=== PATIENT | male | born 1950 | race Caucasian/White ===

== ENCOUNTER 2017-06-20 00:22 | Emergency (ER) | payer MEDICARE ==
[~2017-06-20] VITALS: Ht 172.7 cm; Wt 90.7 kg
[2017-06-20] MEDS ORDERED: LIDO:MAALOX:DONNATAL 1:1:1 15 ML SINGLE DOSE SWSW ONE (00:45)
[2017-06-20] MEDS ORDERED: fentaNYL PF VIAL 100 MCG/2 ML VIAL IV ONE (00:45)
[2017-06-20] MEDS ORDERED: ONDANSETRON PF 4 MG/2 ML VIAL. IV ONE (01:00)
--- NOTE | 2017-06-20 01:07 | PHYS DOC ---
Past Medical History Past Medical History: Diabetes-Type II, Hypertension, Stroke Past Surgical History: Tonsillectomy Additional Past Surgical Histo: RT ANKLE Alcohol Use: Occasionally Drug Use: None Adult General Chief Complaint Chief Complaint: ABDOMINAL PAIN HPI HPI Patient is a 66 year old male who states he has had abdominal pressure x 1 hour. he ate chili at dinner about 5pm with no problem. he drank milk at 2245 and then he began having abdominal pressure. he denies n/v/d. no fever. he has a hx of heartburn but "it doesn't feel like that". he felt fine prior to and after dinner Review of Systems Review of Systems Constitutional: Denies fever or chills [] Eyes: Denies change in visual acuity, redness, or eye pain [] HENT: Denies nasal congestion or sore throat [] Respiratory: Denies cough or shortness of breath [] Cardiovascular: No additional information not addressed in HPI [] GI: Denies abdominal pain, nausea, vomiting, bloody stools or diarrhea [] : Denies dysuria or hematuria [] Musculoskeletal: Denies back pain or joint pain [] Integument: Denies rash or skin lesions [] Neurologic: Denies headache, focal weakness or sensory changes [] Endocrine: Denies polyuria or polydipsia [] Current Medications Current Medications Current Medications Medications (Trade) Dose Ordered Sig/Eduardo Start Time Stop Time Status Last Admin Dose Admin Fentanyl Citrate (Fentanyl 2ml Vial) 50 mcg 1X ONCE 06/20/17 00:45 06/20/17 01:30 DC 06/20/17 00:58 50 MCG Info (Do NOT chart on this entry -- for MONITORING) 1 each PRN DAILY PRN 06/20/17 01:45 06/20/17 03:12 DC Iohexol (Omnipaque 300 Mg/ml) 60 ml 1X ONCE 06/20/17 01:45 06/20/17 01:46 DC 06/20/17 01:43 60 ML Ketorolac Tromethamine (Toradol) 30 mg 1X ONCE 06/20/17 02:15 06/20/17 02:16 Cancel Multi-Ingredient Mouthwash/Gargle (Gi Cocktail Single Dose) 15 ml 1X ONCE 06/20/17 00:45 06/20/17 01:30 DC 06/20/17 00:58 15 ML Ondansetron HCl (Zofran) 4 mg 1X ONCE 06/20/17 01:00 06/20/17 01:30 DC 06/20/17 00:58 4 MG Allergies Allergies Allergies Coded Allergies Type Severity Reaction Last Updated Verified No Known Drug Allergies 06/20/17 No Physical Exam Physical Exam Constitutional: Well developed, well nourished, no acute distress, non-toxic appearance. [] HENT: Normocephalic, atraumatic, bilateral external ears normal, oropharynx moist, no oral exudates, nose normal. [] Eyes: PERRLA, EOMI, conjunctiva normal, no discharge. [] Neck: Normal range of motion, no tenderness, supple, no stridor. [] Cardiovascular:Heart rate regular rhythm, no murmur [] Lungs & Thorax: Bilateral breath sounds clear to auscultation [] Abdomen: BS are diminished. abd is soft, increased tenderness in epigastric area. no ruq pain. no periumbilical tenderness, no masses, no pulsatile masses. [] Skin: Warm, dry, no erythema, no rash. [] Back: No tenderness, no CVA tenderness. [] Extremities: No tenderness, no cyanosis, no clubbing, ROM intact, no edema. [] Neurologic: Alert and oriented X 3, normal motor function, normal sensory function, no focal deficits noted. [] Psychologic: Affect normal, judgement normal, mood normal. [] Current Patient Data Vital Signs Vital Signs Date Time Temp Pulse Resp B/P (MAP) Pulse Ox O2 Delivery O2 Flow Rate FiO2 06/20/17 03:00 86 148/75 (99) 93 Room Air 06/20/17 00:58 18 06/20/17 00:25 97.7 97.7 Lab Values Laboratory Tests Test 06/20/17 00:40 White Blood Count 11.3 x10^3/uL (4.0-11.0) H Red Blood Count 5.05 x10^6/uL (4.30-5.70) Hemoglobin 16.0 g/dL (13.0-17.5) Hematocrit 47.0 % (39.0-53.0) Mean Corpuscular Volume 93 fL (79-100) Mean Corpuscular Hemoglobin 32 pg (25-35) Mean Corpuscular Hemoglobin Concent 34 g/dL (31-37) Red Cell Distribution Width 13.4 % (11.5-14.5) Platelet Count 223 x10^3/uL (140-400) Neutrophils (%) (Auto) 68 % (31-73) Lymphocytes (%) (Auto) 24 % (24-48) Monocytes (%) (Auto) 7 % (0-9) Eosinophils (%) (Auto) 1 % (0-3) Basophils (%) (Auto) 1 % (0-3) Neutrophils # (Auto) 7.7 x10^3uL (1.8-7.7) Lymphocytes # (Auto) 2.7 x10^3/uL (1.0-4.8) Monocytes # (Auto) 0.8 x10^3/uL (0.0-1.1) Eosinophils # (Auto) 0.1 x10^3/uL (0.0-0.7) Basophils # (Auto) 0.1 x10^3/uL (0.0-0.2) Sodium Level 142 mmol/L (136-145) Potassium Level 4.0 mmol/L (3.5-5.1) Chloride Level 101 mmol/L (98-107) Carbon Dioxide Level 30 mmol/L (21-32) Anion Gap 11 (6-14) Blood Urea Nitrogen 18 mg/dL (8-26) Creatinine 1.3 mg/dL (0.7-1.3) Estimated GFR (Cockcroft-Gault) 55.6 BUN/Creatinine Ratio 14 (6-20) Glucose Level 144 mg/dL (70-99) H Calcium Level 9.2 mg/dL (8.5-10.1) Total Bilirubin 1.0 mg/dL (0.2-1.0) Aspartate Amino Transferase (AST) 29 U/L (15-37) Alanine Aminotransferase (ALT) 38 U/L (16-63) Alkaline Phosphatase 56 U/L (46-116) Troponin I Quantitative < 0.017 ng/mL (0.000-0.055) Total Protein 7.7 g/dL (6.4-8.2) Albumin 3.8 g/dL (3.4-5.0) Albumin/Globulin Ratio 1.0 (1.0-1.7) Laboratory Tests 06/20/17 00:40 Laboratory Tests 06/20/17 00:40 EKG EKG [] Radiology/Procedures Radiology/Procedures CT shows cholelithiasis per radiologist[] Course & Med Decision Making Course & Med Decision Making Pertinent Labs and Imaging studies reviewed. (See chart for details) after GI cocktail and fentanyl, pt states his pain is virtually gone. his CT shows cholelithiasis. we discussed dietary changes for gastritis and cholelithiasis. will start pepcid and carafate. he has never had colonoscopy therefore it would be helpful for him to have EGD and colonoscopy as well as US GB as outpt He will call pcp tomorrow to schedule appt for f/u tests. he will return here if sx worsen Dragon Disclaimer Dragon Disclaimer This electronic medical record was generated, in whole or in part, using a voice recognition dictation system. Departure Departure Impression: Primary Impression: Cholelithiasis Disposition: HOME, SELF-CARE Condition: IMPROVED Referrals: DANIELLE BOLIVAR MD (PCP) Patient Instructions: Cholelithiasis Additional Instructions: avoid spicy, fried, greasy foods. take pepcid morning and night for 2 weeks and carafate before meals. Call your doctor to discuss further testing. Keep a food diary of foods you eat that cause pain. Scripts Famotidine (PEPCID) 20 Mg Tablet 20 MG PO BID for 30 Days, #60 TAB Prov: SHA RODRIGUEZ MD 06/20/17 Sucralfate (CARAFATE) 1 Gm Tablet 1 TAB PO QID for 14 Days, #56 TAB 1 Refill Prov: SHA RODRIGUEZ MD 06/20/17 SHA RODRIGUEZ MD Jun 20, 2017 01:07
[2017-06-20 01:16] LABS: BASO # 0.1 x10^3/uL (0.0-0.2); BASO % 1 % (0-3); EOS % 1 % (0-3); LYMPH # 2.7 x10^3/uL (1.0-4.8); LYMPH % 24 % (24-48); MEAN CORPUSCULAR HEMOGLOBIN 32 pg (25-35); MEAN CORPUSCULAR HGB CONC 34 g/dL (31-37); MEAN CORPUSCULAR VOLUME 93 fL (79-100); MONO % 7 % (0-9); NEUT % 68 % (31-73); PLATELET COUNT 223 x10^3/uL (140-400); RED BLOOD COUNT 5.05 x10^6/uL (4.30-5.70); RED CELL DISTRIBUTION WIDTH 13.4 % (11.5-14.5); WHITE BLOOD COUNT 11.3 x10^3/uL (4.0-11.0)
[2017-06-20 01:25] LABS: CALCIUM 9.2 mg/dL (8.5-10.1); CREATININE 1.3 mg/dL (0.7-1.3); GFR 55.6
[2017-06-20 01:30] LABS: ALBUMIN 3.8 g/dL (3.4-5.0); TOTAL PROTEIN 7.7 g/dL (6.4-8.2)
[2017-06-20] MEDS ORDERED: IOHEXOL 300 MG/ML 75 ML VIAL IV ONE (01:45)
[2017-06-20] MEDS ORDERED: CONTRAST GIVEN MC PRN (01:45)
[2017-06-20] MEDS ORDERED: KETOROLAC TROMETHAMINE 30 MG/ML INJ. IV ONE (02:15)
--- NOTE | 2017-06-20 02:31 | RAD ---
CT abdomen and pelvis with contrast HISTORY: Epigastric abdominal pain. TECHNIQUE: Helical CT imaging abdomen and pelvis with 60 mL Omnipaque 300 intravenous contrast. Abdomen findings: Lung bases unremarkable. Coronary calcified plaque. Lumbar disc osteophytes with spinal canal and neural foraminal stenoses L4-L5 and L5-S1. Left hepatic lobe oval 1.4 cm indeterminate hypodense lesion density 14 units. Gallstones. Pancreas, spleen, adrenal glands and kidneys are unremarkable. Small sliding hilum hernia gastric esophageal junction. Appendix is negative. No obstruction or inflammation GI tract. Aortoiliac artery calcified plaque. No abdominal fluid or adenopathy. Pelvis findings: Bladder, prostate, rectum and bones are unremarkable. No fluid or adenopathy. IMPRESSION: 1. No acute process. The appendix is negative. 2. Cholelithiasis. 3. Nonspecific 1.4 cm hypodense lesion of the left hepatic lobe, statistically most likely a cyst or hemangioma. This could be further characterized by outpatient sonography. Exposure: One or more of the following individualized dose reduction techniques were utilized for this examination: 1. Automated exposure control 2. Adjustment of the mA and/or kV according to patient size 3. Use of iterative reconstruction technique Electronically signed by: Varinder Lozada MD (06/20/2017 2:27 AM) [facility]
[2017-06-20] MEDS ORDERED: FAMO-63 PO (02:53)
[2017-06-20] MEDS ORDERED: SUCR1TAB35 PO (02:53)
[2017-06-20 03:00] VITALS: BP 148/75
== END 2017-06-20 03:06 | disposition home or self-care (01) ==
LOC: ER 00:22
DX: K80.20 Calculus of gallbladder without cholecystitis without obstruction (principal); I10 Essential (primary) hypertension; E11.9 Type 2 diabetes mellitus without complications; Z86.73 Personal history of transient ischemic attack (TIA), and cerebral infarction without residual deficits
CPT/HCPCS: 36415; 74177; 80053; 84484; 85027; 96374; 96375; 99285; J2405; J3010; Q9967

== ENCOUNTER → 2017-06-26 | Outpatient (CLI) | payer MEDICARE ==
[2017-06-20 03:00] VITALS: BP 148/75
[~2017-06-26] MED LIST: FAMO-63 PO; SUCR1TAB35 PO
--- NOTE | 2017-06-26 08:40 | RAD ---
Indication:Abdominal pain Grayscale images of the abdomen were obtained. Comparison none. Note is made of an CT examination 6 days ago demonstrating a nonspecific mass in the left lobe of the liver and cholelithiasis Liver:There is increased attenuation of the ultrasound beam by the liver compatible with fatty infiltration. The 1 cm mass in the left lobe of the liver, seen on the referenced CT, is not well represented on this exam. Again the finding on CT likely reflects a cyst. Gallbladder:Known cholelithiasis is reproduced. Numerous stones are seen in the gallbladder. The common bile but diameter of approximately 3 mm is normal Spleen:Normal Pancreas:As visualized normal Kidneys:Normal Abdominal aorta and IVC:The inferior vena cava was not well well visualized and largely obscured. That portion of the abdominal aorta which was seen appeared unremarkable although the aorta too was partially obscured. Ancillary findings:None Impression:Fatty infiltration of the liver. The low-density mass in the left lobe of the liver, seen on CT, is not well characterized or visualized on this exam Cholelithiasis. Abdominal aorta and inferior vena cava largely obscured
== END | disposition home or self-care (01) ==
LOC: US 07:16
PROVIDERS: ATTEND Physician Assistant
DX: K80.20 Calculus of gallbladder without cholecystitis without obstruction (principal); K76.0 Fatty (change of) liver, not elsewhere classified; R16.0 Hepatomegaly, not elsewhere classified
CPT/HCPCS: 76700

== ENCOUNTER → 2017-08-09 | Day surgery (SDC) | payer MEDICARE ==
[~2017-08-09] MED LIST changes: +ALPR0.5T6 PO; +IV RINGERS,LACTATED 1000ML 1,000 ML IV SCH; +LIDOCAINE 2% PF Vial for OR 5 ML VIAL. ONE; +LISI10TA2 PO; +METF500T4 PO; +PROPOFOL 0 ML IV ONE; +PROPOFOL 40 ML IV ONE
[2017-08-09 09:51] VITALS: BP 124/76
== END | disposition home or self-care (01) ==
LOC: SURG 07:50
PROVIDERS: ATTEND Internal Medicine Gastroenterology
DX: Z12.11 Encounter for screening for malignant neoplasm of colon (principal); K64.0 First degree hemorrhoids; K29.50 Unspecified chronic gastritis without bleeding; I10 Essential (primary) hypertension; E11.9 Type 2 diabetes mellitus without complications; Z87.39 Personal history of other diseases of the musculoskeletal system and connective tissue; Z86.39 Personal history of other endocrine, nutritional and metabolic disease
CPT/HCPCS: 43235; G0121; J2704; J2001

== ENCOUNTER 2019-04-04 13:00 | Emergency (ER) | payer MEDICARE ==
[~2019-04-04] VITALS: Ht 172.7 cm; Wt 88.5 kg
[~2019-04-04 13:00] MED LIST changes: -IV RINGERS,LACTATED 1000ML 1,000 ML IV SCH; -LIDOCAINE 2% PF Vial for OR 5 ML VIAL. ONE; +METF500T16 PO; -METF500T4 PO; -PROPOFOL 0 ML IV ONE; -PROPOFOL 40 ML IV ONE
[2019-04-04] MEDS ORDERED: HYDROcodone/APAP 5/325MG 1 TAB TABLET PO ONE (15:00)
[2019-04-04] MEDS ORDERED: diazePAM 5 MG TABLET PO ONE (15:00)
--- NOTE | 2019-04-04 15:09 | PHYS DOC ---
Past Medical History Past Medical History: Anxiety, CVA, Diabetes-Type II, GERD, Hypertension, Stroke (MARS GUILLAUME APRN) Past Surgical History: Tonsillectomy, Other Additional Past Surgical Histo: RT ANKLE (MARS GUILLAUME APRN) Alcohol Use: Occasionally Drug Use: None (MARS GUILLAUME APRN) Adult General Chief Complaint Chief Complaint: HIP PAIN HPI HPI Patient is a 68 year old male who presents complaining of intermittent right low back pain radiating to the right hip that began on Monday. He states he made a wrong turn when this pain began. He states he was seen by the PCP who didn't think anything much of this pain. He states he followed up with a chiropractor who did adjustments to his back for 2 days with some improvement but he does not feel the pain is gone. He states whenever he makes a wrong turn he feels the pain. Denies any loss of bowel bladder function. Denies any numbness or tenderness to bilateral lower extremities. (MARS GUILLAUME APRN) Review of Systems Review of Systems Constitutional: Denies fever or chills [] GI: Denies abdominal pain, nausea, vomiting, bloody stools or diarrhea [] : Denies dysuria or hematuria [] Musculoskeletal: Reports right low back pain radiating to the right lower extremity Integument: Denies rash or skin lesions [] Neurologic: Denies headache, focal weakness or sensory changes [] All other systems were reviewed and found to be within normal limits, except as documented in this note. (MARS GUILLAUME APRN) Current Medications Current Medications Current Medications Medications (Trade) Dose Ordered Sig/Eduardo Start Time Stop Time Status Last Admin Dose Admin Acetaminophen/ Hydrocodone Bitart (Lortab 5/325) 1 tab 1X ONCE 04/04/19 15:00 04/04/19 15:01 DC Diazepam (Valium) 5 mg 1X ONCE 04/04/19 15:00 04/04/19 15:01 DC (SARAH EDWARDS DO) Allergies Allergies Allergies Coded Allergies Type Severity Reaction Last Updated Verified No Known Drug Allergies 08/09/17 No (SARAH EDWARDS DO) Physical Exam Physical Exam Constitutional: Well developed, well nourished, no acute distress, non-toxic appearance. [] Abdomen: Bowel sounds normal, soft, no tenderness, no masses, no pulsatile masses. [] Skin: Warm, dry, no erythema, no rash. [] Back: Diffuse paraspinal muscle tenderness to the right lumbar spine with most of the tenderness on the right SI joint, no midline lumbar spine tenderness, no CVA tenderness. [] Extremities: No tenderness, no cyanosis, no clubbing, ROM intact, no edema. [] Neurologic: Alert and oriented X 3, normal motor function, normal sensory function, no focal deficits noted. [] Psychologic: Affect normal, judgement normal, mood normal. [] (MARS GUILLAUME APRN) Current Patient Data Vital Signs Vital Signs Date Time Temp Pulse Resp B/P (MAP) Pulse Ox O2 Delivery O2 Flow Rate FiO2 04/04/19 15:18 74 16 174/92 (119) 99 Room Air 04/04/19 13:53 97.4 97.4 (SARAH EDWARDS DO) EKG EKG [] (MARS GUILLAUME APRN) Radiology/Procedures Radiology/Procedures [] (MARS GUILLAUME APRN) Course & Med Decision Making Course & Med Decision Making Pertinent Labs and Imaging studies reviewed. (See chart for details) This is a 68-year-old male patient presenting to the ED today with right low back pain radiating to the right hip after twisting his back. Was seen by the PCP and chiropractor. States the tizanidine is not helping. Discharge to home. Instructed to continue following up with his own doctor. Has no cauda equina syndrome symptoms. (MARS GUILLAUME APRN) Dragon Disclaimer Dragon Disclaimer This electronic medical record was generated, in whole or in part, using a voice recognition dictation system. (MARS GUILLAUME APRN) Departure Departure Impression: Primary Impression: Right hip pain Additional Impressions: Low back pain Sciatica of right side Disposition: HOME, SELF-CARE Condition: STABLE Referrals: DANIELLE BOLIVAR MD (PCP) Follow up with your doctor in 1 week Patient Instructions: Back Pain, Adult, Hip Pain, Sciatica Additional Instructions: You were seen for right back pain and right hip pain. Take the prescribed medications as ordered. Consider applying heat to your back. Follow-up with your doctor in 1-2 weeks. Scripts Hydrocodone/Apap 5-325 (NORCO 5-325 TABLET) 1 Each Tablet 1 TAB PO Q4-6HRS, #10 TAB Prov: MARS GUILLAUME PAEDODONTIST 04/04/19 Attending Signature Attending Signature I have reviewed the PA/[employer]'s note and plan of care. I was available for consultation as needed during the patient's visit in the emergency department. I agree with the clinical impression, plan, and disposition. (SARAH EDWARDS DO) Problem Qualifiers Additional Impressions: Low back pain Chronicity: acute Back pain laterality: right Sciatica presence: with sciatica Sciatica laterality: sciatica of right side Qualified Codes: M54.41 - Lumbago with sciatica, right side MARS GUILLAUME PAEDODONTIST April 04, 2019 15:09 SARAH EDWARDS DO April 05, 2019 12:52
[2019-04-04] MEDS ORDERED: HYDR-3164 PO (15:14)
[2019-04-04 15:18] VITALS: BP 174/92
== END 2019-04-04 15:18 | disposition home or self-care (01) ==
LOC: ER 13:00
DX: M54.41 Lumbago with sciatica, right side (principal); M25.551 Pain in right hip; K21.9 Gastro-esophageal reflux disease without esophagitis; E11.9 Type 2 diabetes mellitus without complications; I10 Essential (primary) hypertension; Z86.73 Personal history of transient ischemic attack (TIA), and cerebral infarction without residual deficits
CPT/HCPCS: 99283

== ENCOUNTER → 2020-07-16 | Outpatient (CLI) | payer MEDICARE ==
[~2020-07-16] MED LIST changes: +ACET500T68 PO; +DICL100G54 TP; +FAMO20TA5 PO; +HYDR-3164 PO; +IOHEXOL 180 MG/ML 10 ML VIAL. ONE; +LIDO76.5 TP; +LISI1TAB23 PO; +MULT-658 PO; +NAPR-695 PO; +methylPREDNISolone ACETATE 40 MG/ML VIAL. ONE; +methylPREDNISolone ACETATE 80 MG/ML VIAL. ONE
--- NOTE | 2020-07-16 11:53 | PDOC ---
Progress Note - Pain Clinic Date of Service: DOS: DATE: 07/16/20 TIME: 11:49 Diagnosis: Dx: Lumbar radiculopathy with lumbar degenerative disc disease History or Present Illness: HPI: 70-year-old male returns follow-up status post lumbar epidural steroid injection x1 last seen August 2019. Patient was did very well with about a 70% improvement overall in the low back and this been returning now in the low back and more in the right than the left lower extremity over the past 2 to 3 months. Patient reports no new motor or sensory deficits no new bowel or bladder incontinence no recent injury or accident that he is aware of patient rates his pain as a 5 on a scale of 10 is worst 5 on average for this least is a 5 today. Patient which is aching and dull tight sometimes sharp and shooting in the posterior gluteus posterior lateral thigh anterior thighs more on the right than left are present bilaterally. Patient reports is worse with standing and walking better with sitting or laying down does not awaken him from sleep at n ight. Physical Exam: VS: Blood pressure 129/81 pulse 79 respirations 18 temperature 98.3 F height is 5 feet 8 inches weight is 193 pounds PE: PHYSICAL EXAMINATION: GENERAL: The patient is awake, alert, oriented, appropriate, very pleasant demeanor HEENT: Shows normocephalic, atraumatic. Extraocular movements are intact and symmetrical. Oral cavity: Mucous membranes moist and pink. Dentition is intact. NECK: Shows anterior throat supple without palpable lymphadenopathy noted. Swallow reflex symmetrical. CHEST: Shows normal on inspection. Breath sounds are clear bilaterally, no rales rhonchi or wheezes auscultated. HEART: Shows S1, S2 clear. No murmurs auscultated. ABDOMEN: Soft, nontender, nondistended. No palpable organomegaly is noted. No rebound or guarding demonstrated. BACK: Shows spine grossly in the midline. Normal-appearing cervical lordotic curvature. There is slightly increased thoracic kyphosis, some minor flattening of the lumbar lordotic curvature. Lumbar paraspinous muscles show symmetrical on inspection, on palpation shows some moderate tenderness diffusely throughout the upper, middle and lower distribution of the paraspinous muscles bilaterally and also into the lower thoracic paraspinous musculature, firm and tender, but without specific trigger points, without radiation of pain. The patient has good rotational motion of the lumbar spine, both laterally as well as extension and flexion without significant difficulty. No tenderness over the spinous processes, sacrum or sacroiliac regions. EXTREMITIES: Lower extremities show deep tendon reflexes 2 in the patellar and tendo calcaneus tendons. Motor exam is 5 on a scale of 5 with right dorsiflexion, extension, quadriceps and hamstring flexion and 5/5 on the left. Peripheral pulses are 1 posterior tibial. No peripheral edema is noted bilaterally. Lower extremities are warm and dry to touch, equal in color and appearance. Straight leg raise noted to be negative on the right , left side is negative also. Gaenslen's and Victor M's maneuvers are negative as well. The patient is able to stand, stand on his toes without significant difficulty or loss of balance walks with a normal-appearing gait does not appear to favor the right or left lower extremity significantly not use any assistive devices to ambulate.. SKIN: Shows warm and dry, good turgor. No edema. No sores, rashes or bruising throughout. Procedure: Procedure: Options were discussed with the patient. Patient will chart reviewed his his current medication regimen updated current review of systems updated today as betzaida shen. We will proceed with a lumbar epidural steroid injection as he is done very well with these in the past risks are discussed including but not limited to bleeding infection possibility of epidural hematoma subsequent neurological compromise dural puncture headache spinal cord and or nerve damage side effects of steroid medication and portals chronic pain control. Patient understands wished to proceed. Patient return to clinic in proxy 2 weeks for follow-up was counseled as to return appointment activity level and side effects be aware. Medication Injected: Med Injected: Procedure is lumbar epidural steroid injection under local anesthetic using sterile prep and drape at the L4-5 level using C-arm fluoroscopic guidance in both AP and lateral views medications injected is 120 mg Depo-Medrol + 10 mL preservative-free normal saline and 2 mL contrast- condition at discharge is stable patient tolerated procedure well had no complications. Condition at Discharge: Condition at Discharge: Condition at discharge is stable patient tolerated the procedure well had no complications. ROBYN SAPP MD Jul 16, 2020 11:53
== END | disposition home or self-care (01) ==
LOC: PNCL 10:44 → MERGE 11:20
PROVIDERS: ATTEND Anesthesiology
DX: M51.16 Intervertebral disc disorders with radiculopathy, lumbar region (principal); I12.9 Hypertensive chronic kidney disease with stage 1 through stage 4 chronic kidney disease, or unspecified chronic kidney disease; N18.2 Chronic kidney disease, stage 2 (mild); E11.22 Type 2 diabetes mellitus with diabetic chronic kidney disease; Z79.899 Other long term (current) drug therapy
CPT/HCPCS: 62323; J1030; J1040; Q9965

== ENCOUNTER → 2022-01-14 | Outpatient (CLI) | payer MEDICARE ==
[~2022-01-14] MED LIST changes: -IOHEXOL 180 MG/ML 10 ML VIAL. ONE; +LISI10TA16 PO; -LISI10TA2 PO; -LISI1TAB23 PO; +LISI1TAB35 PO; -methylPREDNISolone ACETATE 40 MG/ML VIAL. ONE; -methylPREDNISolone ACETATE 80 MG/ML VIAL. ONE
--- NOTE | 2022-01-14 08:46 | KCIC ---
CT HEAD/BRAIN WO History: Reason: Tremors, hypertension, previous bleed, Lt eye vision problems. / Spl. Instructions: / History: Bleed 2004 Comparison: January 26, 2006 Technique: Noncontrast CT imaging was performed of the head. Exposure: One or more of the following individualized dose reduction techniques were utilized for thi s examination: 1. Automated exposure control 2. Adjustment of the mA and/or kV according to patient size 3. Use of iterative reconstruction technique. Findings: No intracranial hemorrhage. No mass effect. No hydrocephalus. Right occipital cystic encephalomalacia with dystrophic calcifications. Ex vacuo dilatation of the ri ght occipital horn. Imaged orbits are unremarkable. Fluid within the right maxillary sinus. Left mastoid opacification. N o acute calvarial fracture. Impression: 1. No acute intracranial abnormality. 2. Right occipital cystic encephalomalacia. 3. Right maxillary sinus fluid, can be seen with acute sinusitis in the appropriate clinical setting . Electronically signed by: Que Cruz DO (01/14/2022 8:43 AM) [facility]
== END ==
LOC: KCIC CT 08:00
PROVIDERS: ATTEND Nurse Practitioner Family
DX: G25.0 Essential tremor (principal); G93.89 Other specified disorders of brain
CPT/HCPCS: 70450